=== PATIENT | female | born 1955 | race African-American/Black ===

== ENCOUNTER → 2016-07-19 | Outpatient (CLI) | payer MEDICAID ==
[~2016-07-19] MED LIST: ADVAIR 250/28 DISKU1 IH; ALDACTONE 25MG25 M1 PO; ASMANEX TW110 MCG/AC IH; BENICAR40 MG PO; CATAPRES 0.1MG0.1 MG PO; CLONIDINE0.1 MG PO; COMBIVENT INH14.7 GM IH; COPPERAS1 GRA PO; DIOVAN160 M1 PO; EXFORGE HCT 101 TAB PO; FLEXERIL10 MG PO; FOLIC ACID; HCTZ PO; LISINOPRIL/HCTZ1 TA1 PO; MVI PO; NAPROSYN500 MG PO; NORCO 325 MG-51 TAB PO; NORCO 325 MG-7.1 TAB PO; NORVASC 5MG5 MG/TAB PO; NORVASC10 MG PO; PERCOCET 5/321 UDTAB PO; PHENERGAN 25 TA25 MG PO; PRENATAL1 TA1 PO; PRILOSEC 20MG20 MG PO; PROVENTIL0.09 MG/A1 IH; REGLAN 10MG10 MG/TAB PO; ROXICODONE 55 MG/TAB PO; SINGULAIR10 MG PO; TRIAMCINOLONE0.11 TP; TUSS PO; TYLENOL 500MG500 MG PO; ULTRAM 50MG TAB50 MG PO; VENTOLIN0.09 MG IH; XANAX .25M0.25 MG/TA PO; XARELTO10 MG PO; ZANTAC 300300 MG PO; ZYRTEC10 MG PO; [UNRECOGNIZED DRUG - REMARK]; [UNRECOGNIZED DRUG - REMARK]; arthritis med; bp meds
[2016-07-19 16:33] LABS: MEAN CELL VOLUME 95 fl (80.0-100.0); MEAN CORPUSCULAR HGB CONC 31 g/dl (33.0-37.0); PLATELET COUNT 274 K/mm3 (130-400); RED BLOOD COUNT 3.77 M/mm3 (4.10-5.30); REDCELL DISTRIBUTION WIDTH-CV 14.2 % (11.5-14.5); WHITE BLOOD COUNT 7.7 K/mm3 (4.8-10.8)
[2016-07-19 16:34] LABS: HEMATOCRIT 35.7 % (37.0-47.0); HEMOGLOBIN 10.9 g/dl (12.5-16.0); MEAN CORPUSCULAR HEMOGLOBIN 29 pg (27.0-31.0)
[2016-07-19 16:55] LABS: ERYTHROCYTE SEDIMENTATION RATE 48 mm/hr (0-30)
== END ==
LOC: COL.VAS 15:15 → COL.LAB 15:32 → COL.VAS 15:32
PROVIDERS: Orthopaedic Surgery
DX: R25.2 Cramp and spasm (principal); M79.89 Other specified soft tissue disorders

== ENCOUNTER 2016-10-19 17:35 | Emergency (ER) | payer SELFPAY ==
[~2016-10-19] VITALS: Ht 165.1 cm; Wt 104.5 kg
[2016-10-19 17:37] VITALS: TEMP 98.2
[2016-10-19 18:27] LABS: BASO % 0.5 % (0.0-2.0); EOS # 0.2 (0.0-0.7); EOS % 2.4 % (0-4.0); GRAN # 4.8 (1.4-6.5); GRAN % 60.4 % (42.2-75.2); LYMPH # 2.1 (1.2-3.4); LYMPH % 26.3 % (20.0-51.0); MEAN CELL VOLUME 94 fl (80.0-100.0); MEAN CORPUSCULAR HGB CONC 31 g/dl (33.0-37.0); MEAN PLATELET VOLUME 10.2 fl (7.4-10.4); MONO # 0.8 (0.1-0.6); MONO % 10.2 % (1.7-9.3); PLATELET COUNT 290 K/mm3 (130-400); RED BLOOD COUNT 3.75 M/mm3 (4.10-5.30); REDCELL DISTRIBUTION WIDTH-CV 14.3 % (11.5-14.5)
[2016-10-19 18:30] LABS: HEMATOCRIT 35.4 % (37.0-47.0); HEMOGLOBIN 10.9 g/dl (12.5-16.0); MEAN CORPUSCULAR HEMOGLOBIN 29 pg (27.0-31.0)
[2016-10-19 18:35] LABS: ADJUSTED CALCIUM 9.5 mg/dL (8.4-10.2); ALBUMIN 4.4 gm/dL (3.5-5.0); BILIRUBIN,TOTAL 0.5 mg/dL (0.0-1.0); CALCIUM 9.8 mg/dL (8.4-10.2); CREATININE, serum 1.01 mg/dL (0.52-1.25); POTASSIUM 4.3 mmol/L (3.4-5.0); TOTAL PROTEIN 9.1 gm/dL (6.4-8.2)
[2016-10-19 18:46] LABS: TROPONIN-I 0.012 ng/mL (0.000-0.034)
[2016-10-19] MEDS ORDERED: NORCO 325 MG-51 TAB PO (19:09)
[2016-10-19 19:45] VITALS: BP 155/79; PULSE 107
== END 2016-10-19 19:45 | disposition home or self-care (01) ==
LOC: COL.ER 17:35
PROVIDERS: Emergency Medicine
DX: R07.89 Other chest pain (principal); I10 Essential (primary) hypertension; I25.10 Atherosclerotic heart disease of native coronary artery without angina pectoris; M25.511 Pain in right shoulder
CPT/HCPCS: J2060; J2270; J2405; J7030

== ENCOUNTER 2017-08-09 14:45 | Outpatient (RCR) | payer MEDICARE | END 2017-08-10 13:45 | disposition home or self-care (01) | LOC: MKS.ESL.PT 14:45 | DX: M25.512 Pain in left shoulder (principal); Z98.890 Other specified postprocedural states | CPT/HCPCS: G8990-GP; G8991-GP; G8992-GP ==

== ENCOUNTER → 2017-09-14 | Outpatient (CLI) | payer MEDICARE ==
[~2017-09-14] MED LIST changes: +COZAAR100 MG PO; +FLEXERIL 1010 MG/TAB PO; +GLUCOPHAGE500 MG/TAB PO; +PRIL40 PO; +TRIAMCINOLONE A15 GM TP; +ZANTAC 150MG T150 MG PO; +ZYLOPRIM 300MG300 MG PO
== END ==
LOC: MC.RAD 11:20
DX: Z12.31 Encounter for screening mammogram for malignant neoplasm of breast (principal); Z98.890 Other specified postprocedural states

== ENCOUNTER 2017-12-20 13:47 | Emergency (ER) | payer MEDICARE ==
[~2017-12-20] VITALS: Ht 162.6 cm; Wt 113.6 kg
[~2017-12-20 13:47] MED LIST changes: +DIABETA 5MG5 MG/TAB PO; +TOPROL XL 25MG25 MG PO
[2017-12-20 13:52] VITALS: TEMP 98.1
[2017-12-20] MEDS ORDERED: ATARAX 10MG10 MG/TAB PO (14:08)
[2017-12-20] MEDS ORDERED: NORCO 325 MG-7.1 TAB PO (14:08)
[2017-12-20] MEDS ORDERED: VITAMIN D 1001000 IU (14:10)
[2017-12-20 15:01] LABS: BASO # 0.1 (0.0-0.2); BASO % 0.5 % (0.0-2.0); EOS # 0.4 (0.0-0.7); EOS % 3.6 % (0-4.0); GRAN # 6.9 (1.4-6.5); GRAN % 67.2 % (42.2-75.2); HEMATOCRIT 36.7 % (37.0-47.0); HEMOGLOBIN 11.2 g/dl (12.5-16.0); LYMPH % 19.4 % (20.0-51.0); MEAN CELL VOLUME 95 fl (80.0-100.0); MEAN CORPUSCULAR HEMOGLOBIN 29 pg (27.0-31.0); MEAN CORPUSCULAR HGB CONC 31 g/dl (33.0-37.0); MEAN PLATELET VOLUME 9.7 fl (7.4-10.4); MONO # 0.9 (0.1-0.6); MONO % 8.9 % (1.7-9.3); PLATELET COUNT 262 K/mm3 (130-400); RED BLOOD COUNT 3.88 M/mm3 (4.10-5.30); REDCELL DISTRIBUTION WIDTH-CV 15.6 % (11.5-14.5)
[2017-12-20 15:12] LABS: ALBUMIN 3.9 gm/dL (3.5-5.0); BILIRUBIN,TOTAL 0.2 mg/dL (0.0-1.0); CREATININE, serum 1.44 mg/dL (0.52-1.25); POTASSIUM 5.7 mmol/L (3.4-5.0); TOTAL PROTEIN 8.4 gm/dL (6.4-8.2)
[2017-12-20 15:25] LABS: TROPONIN-I 0.024 ng/mL (0.000-0.034)
[2017-12-20] MEDS ORDERED: ZITHROMAX Z PA250 MG PO (17:06)
[2017-12-20 17:41] VITALS: BP 132/74; PULSE 83
== END 2017-12-20 17:45 | disposition home or self-care (01) ==
LOC: COL.ER 13:47
PROVIDERS: Emergency Medicine
DX: J20.9 Acute bronchitis, unspecified (principal); E87.5 Hyperkalemia; I10 Essential (primary) hypertension; E11.9 Type 2 diabetes mellitus without complications; Z79.84 Long term (current) use of oral hypoglycemic drugs
CPT/HCPCS: J0696; J1885; J7040

== ENCOUNTER 2018-02-13 09:02 | Day surgery (SDC) | payer MEDICARE ==
[2018-02-13] VITALS (13 sets, daily range): BP systolic 152–202; BP diastolic 96–109; PULSE 102–121; TEMP 97–97.1
[~2018-02-13] VITALS: Ht 162.7 cm; Wt 113.0 kg
[~2018-02-13 09:02] MED LIST changes: +ATARAX 10MG10 MG/TAB PO; +VITAMIN D 1001000 IU PO; +ZITHROMAX Z PA250 MG PO
[2018-02-13 09:53] LABS: HEMATOCRIT 34.8 % (37.0-47.0); HEMOGLOBIN 10.6 g/dl (12.5-16.0); MEAN CELL VOLUME 96 fl (80.0-100.0); MEAN CORPUSCULAR HEMOGLOBIN 29 pg (27.0-31.0); MEAN CORPUSCULAR HGB CONC 31 g/dl (33.0-37.0); MEAN PLATELET VOLUME 10.1 fl (7.4-10.4); PLATELET COUNT 317 K/mm3 (130-400); RED BLOOD COUNT 3.62 M/mm3 (4.10-5.30); REDCELL DISTRIBUTION WIDTH-CV 14.6 % (11.5-14.5)
[2018-02-13 09:55] LABS: PROTHROMBIN TIME 11.7 SECONDS (9.7-12.8)
[2018-02-13 09:58] LABS: CALCIUM 10.6 mg/dL (8.4-10.2); CREATININE, serum 1.53 mg/dL (0.52-1.25); POTASSIUM 5.7 mmol/L (3.4-5.0)
[2018-02-13] MEDS ORDERED: XANAX .25M0.25 MG/TA PO (10:58)
[2018-02-13] MEDS ORDERED: NORVASC 5MG5 MG/TAB PO (10:59)
[2018-02-13] MEDS ORDERED: NORCO 325 MG-51 TAB PO (11:00)
[2018-02-13] MEDS ORDERED: NAPROSYN500 MG PO (11:01)
[2018-02-13] MEDS ORDERED: ALDACTONE 25MG25 M1 PO (11:03)
[2018-02-13] MEDS ORDERED: TOPROL XL 25MG25 MG PO (11:04)
[2018-02-13] MEDS ORDERED: TRIAMC 0.1 454 TOP (11:21)
[2018-02-13] MEDS ORDERED: DIABETA 2.5MG2.5 MG PO (11:22)
[2018-02-13] MEDS ORDERED: PREDNISONE20 MG PO (11:24)
== END 2018-02-13 17:55 | disposition home or self-care (01) ==
LOC: COL.CAR 09:02
PROVIDERS: Internal Medicine Cardiovascular Disease
DX: R06.02 Shortness of breath (principal); I42.8 Other cardiomyopathies; I27.20 Pulmonary hypertension, unspecified; I10 Essential (primary) hypertension; K21.9 Gastro-esophageal reflux disease without esophagitis; M06.9 Rheumatoid arthritis, unspecified; I87.8 Other specified disorders of veins; Z88.6 Allergy status to analgesic agent; Z88.3 Allergy status to other anti-infective agents; Z88.2 Allergy status to sulfonamides; Z88.8 Allergy status to other drugs, medicaments and biological substances
CPT/HCPCS: C1760; C1894; J1644; J2250; J2930; J3010; Q9967

== ENCOUNTER → 2018-03-06 | Outpatient (CLI) | payer MEDICARE ==
[~2018-03-06] MED LIST changes: +DIABETA 2.5MG2.5 MG PO; +PREDNISONE20 MG PO; +TRIAMC 0.1 454 TOP
== END ==
LOC: COL.RAD 08:15
DX: G93.5 Compression of brain (principal); R90.82 White matter disease, unspecified; Z98.890 Other specified postprocedural states
CPT/HCPCS: A9585

== ENCOUNTER 2018-03-13 07:19 | Day surgery (SDC) | payer MEDICARE ==
[2018-03-13] VITALS (7 sets, daily range): BP systolic 129–151; BP diastolic 73–88; PULSE 102–114; TEMP 97.9–98.3
[~2018-03-13] VITALS: Ht 165.2 cm; Wt 116.0 kg
[2018-03-13 07:46] LABS: HEMOGLOBIN 10.1 g/dl (12.5-16.0); MEAN CELL VOLUME 97 fl (80.0-100.0); MEAN CORPUSCULAR HEMOGLOBIN 30 pg (27.0-31.0); MEAN CORPUSCULAR HGB CONC 30 g/dl (33.0-37.0); MEAN PLATELET VOLUME 9.8 fl (7.4-10.4); PLATELET COUNT 312 K/mm3 (130-400); RED BLOOD COUNT 3.41 M/mm3 (4.10-5.30); REDCELL DISTRIBUTION WIDTH-CV 14.7 % (11.5-14.5)
[2018-03-13 07:47] LABS: HEMATOCRIT 33.2 % (37.0-47.0)
[2018-03-13 08:07] LABS: CALCIUM 9.7 mg/dL (8.4-10.2); CREATININE, serum 1.26 mg/dL (0.52-1.25); POTASSIUM 4.6 mmol/L (3.4-5.0)
[2018-03-13 08:30] LABS: PROTHROMBIN TIME 11.4 SECONDS (9.7-12.8)
[2018-03-14 00:59] VITALS: BP 102/60; PULSE 104; TEMP 98.6
[2018-03-14 04:19] VITALS: BP 112/62; PULSE 73; TEMP 97.4
[2018-03-14 06:51] LABS: BASO % 0.6 % (0.0-2.0); EOS # 0.2 (0.0-0.7); EOS % 3.3 % (0-4.0); GRAN # 4.1 (1.4-6.5); GRAN % 59.1 % (42.2-75.2); LYMPH # 1.6 (1.2-3.4); LYMPH % 23.9 % (20.0-51.0); MEAN CELL VOLUME 99 fl (80.0-100.0); MEAN CORPUSCULAR HGB CONC 30 g/dl (33.0-37.0); MEAN PLATELET VOLUME 10.2 fl (7.4-10.4); MONO # 0.9 (0.1-0.6); MONO % 12.4 % (1.7-9.3); PLATELET COUNT 241 K/mm3 (130-400); RED BLOOD COUNT 3.05 M/mm3 (4.10-5.30); REDCELL DISTRIBUTION WIDTH-CV 14.7 % (11.5-14.5)
[2018-03-14 06:53] LABS: HEMATOCRIT 30.2 % (37.0-47.0); HEMOGLOBIN 8.9 g/dl (12.5-16.0); MEAN CORPUSCULAR HEMOGLOBIN 29 pg (27.0-31.0)
[2018-03-14 07:09] LABS: CALCIUM 8.8 mg/dL (8.4-10.2); CREATININE, serum 1.82 mg/dL (0.52-1.25); MAGNESIUM 1.9 mg/dL (1.6-2.3); POTASSIUM 4.8 mmol/L (3.4-5.0)
[2018-03-14 08:35] VITALS: BP 106/57; PULSE 73; TEMP 97.5
[2018-03-14] MEDS ORDERED: TOPROL XL 50MG50 MG PO (10:43)
[2018-03-14] MEDS ORDERED: CLEOCIN HCL300 MG PO (10:48)
== END 2018-03-14 12:19 | disposition home or self-care (01) ==
LOC: COL.CAR 07:19 → MEDICAL 12:00 → COL.CAR 03-14 12:19
PROVIDERS: Internal Medicine Cardiovascular Disease
DX: I11.0 Hypertensive heart disease with heart failure (principal); I50.9 Heart failure, unspecified; E11.9 Type 2 diabetes mellitus without complications; I27.20 Pulmonary hypertension, unspecified; I34.0 Nonrheumatic mitral (valve) insufficiency; K21.9 Gastro-esophageal reflux disease without esophagitis; M19.90 Unspecified osteoarthritis, unspecified site; G93.5 Compression of brain; M51.36 Other intervertebral disc degeneration, lumbar region
CPT/HCPCS: OP; J2250; J2405; J3010; J3370; J7030; J7050

== ENCOUNTER 2018-04-01 11:59 | Inpatient (IN) | payer MEDICARE ==
[~2018-04-01] VITALS: Ht 165.1 cm; Wt 144.5 kg
[~2018-04-01 11:59] MED LIST changes: +CLEOCIN HCL300 MG PO; +TOPROL XL 50MG50 MG PO
--- NOTE | 2018-04-19 09:21 | NUR ---
Pt arrived to room 304 ambulatory with admissions staff. Pt oriented to room and call light system. Will complete assessment. Pt's is at the bedside; all questions answered. Pt is sitting up in the bed at this time and she denies further needs. Call light within reach, will continue to monitor.
[2018-04-19 10:04] LABS: BASO % 0.6 % (0.0-2.0); EOS # 0.3 (0.0-0.7); EOS % 3.6 % (0-4.0); GRAN # 4.7 (1.4-6.5); GRAN % 65.2 % (42.2-75.2); HEMOGLOBIN 10.2 g/dl (12.5-16.0); LYMPH # 1.6 (1.2-3.4); LYMPH % 21.7 % (20.0-51.0); MEAN CELL VOLUME 97 fl (80.0-100.0); MEAN CORPUSCULAR HEMOGLOBIN 29 pg (27.0-31.0); MEAN CORPUSCULAR HGB CONC 30 g/dl (33.0-37.0); MEAN PLATELET VOLUME 9.9 fl (7.4-10.4); MONO # 0.6 (0.1-0.6); MONO % 8.2 % (1.7-9.3); PLATELET COUNT 208 K/mm3 (130-400); RED BLOOD COUNT 3.48 M/mm3 (4.10-5.30); REDCELL DISTRIBUTION WIDTH-CV 14.2 % (11.5-14.5)
[2018-04-19 10:07] LABS: HEMATOCRIT 33.6 % (37.0-47.0)
[2018-04-19 10:10] LABS: INR 1.1 (0.8-3.0)
[2018-04-19 10:15] VITALS: BP 171/98; PULSE 107; TEMP 98.4
[2018-04-19 10:16] LABS: ALBUMIN 4.2 gm/dL (3.5-5.0); BILIRUBIN,TOTAL 0.4 mg/dL (0.0-1.0); CALCIUM 9.7 mg/dL (8.4-10.2); CREATININE, serum 1.34 mg/dL (0.52-1.25); MAGNESIUM 1.7 mg/dL (1.6-2.3); POTASSIUM 4.8 mmol/L (3.4-5.0); TOTAL PROTEIN 9.2 gm/dL (6.4-8.2)
[2018-04-19 11:06] VITALS: BP 107/58; PULSE 96; TEMP 98.8
[2018-04-19 15:26] VITALS: BP 150/80; PULSE 97; TEMP 98.1
[2018-04-19 18:56] VITALS: BP 165/86; PULSE 94; TEMP 98
--- NOTE | 2018-04-19 19:19 | NUR ---
Pt has been resting on and off throughout the day. She has remained free of pain. Pt's S/O has remained at the bedside; all questions answered. Pt is sitting up in the bed watching TV at this time and she denies further needs. Call light within reach. Report given to CHRIS Adams.
--- NOTE | 2018-04-19 20:59 | NUR ---
PT IN BED WITH HOB ELEVATED AT 45 DEGREE ANGLE. PT HAS NO C/O OF PAIN AT THIS TIME. ADVISES THAT SHE HAS AMBULATED IN ROOM. NO NEEDS AT THIS TIME, CALL LIGHT WITHIN REACH.
[2018-04-20 00:35] VITALS: BP 132/70; PULSE 75; TEMP 97.7
--- NOTE | 2018-04-20 04:35 | NUR ---
UNEVENTFUL NIGHT, PT IN BED ASLEEP/RESTING, WITH NO S/S OF PAIN OR DISCOMFORT AND RESP EVEN AND UNLABORED. CALL LIGHT WITHIN REACH.
[2018-04-20 04:37] VITALS: BP 143/64; PULSE 66; TEMP 98.4
[2018-04-20 08:10] VITALS: BP 135/74; PULSE 82; TEMP 97.3
[2018-04-20 08:22] LABS: BASO % 0.6 % (0.0-2.0); EOS # 0.4 (0.0-0.7); EOS % 5.6 % (0-4.0); GRAN # 3.5 (1.4-6.5); GRAN % 54.3 % (42.2-75.2); HEMATOCRIT 32.3 % (37.0-47.0); HEMOGLOBIN 9.7 g/dl (12.5-16.0); LYMPH # 1.9 (1.2-3.4); LYMPH % 29.2 % (20.0-51.0); MEAN CELL VOLUME 96 fl (80.0-100.0); MEAN CORPUSCULAR HEMOGLOBIN 29 pg (27.0-31.0); MEAN CORPUSCULAR HGB CONC 30 g/dl (33.0-37.0); MEAN PLATELET VOLUME 10.5 fl (7.4-10.4); MONO # 0.7 (0.1-0.6); PLATELET COUNT 217 K/mm3 (130-400); RED BLOOD COUNT 3.35 M/mm3 (4.10-5.30); REDCELL DISTRIBUTION WIDTH-CV 14.4 % (11.5-14.5)
[2018-04-20 08:28] LABS: INR 1.1 (0.8-3.0); PROTHROMBIN TIME 12.6 SECONDS (9.7-12.8)
[2018-04-20 08:31] LABS: CALCIUM 9.3 mg/dL (8.4-10.2); CREATININE, serum 1.66 mg/dL (0.52-1.25); MAGNESIUM 1.9 mg/dL (1.6-2.3); POTASSIUM 4.4 mmol/L (3.4-5.0)
--- NOTE | 2018-04-20 09:00 | NUR ---
Assessment complete. Pt is AXO X3, denies having any pain at this time. Breathing is even and unlabored on room air. Tele on. RA INT flushes easily, remains free of complications, and is CDI. Pt is sitting up in the bed waiting for her breakfast to arrive at this time and she denies further needs. Call light within reach, will continue to monitor.
[2018-04-20 11:27] VITALS: BP 129/64; PULSE 69; TEMP 97.4
[2018-04-20 18:26] VITALS: BP 149/81; PULSE 81; TEMP 97.7
[2018-04-20 19:25] VITALS: BP 145/77; PULSE 89; TEMP 97.6
--- NOTE | 2018-04-20 19:28 | NUR ---
Pt has been resting on and off throughout the day. She has remained free of pain. Pt is sitting up in the bed at this time and she denies further needs. Call light within reach. Report given to CHRIS Adams.
--- NOTE | 2018-04-20 19:50 | NUR ---
PT IN BED WITH HOB ELEVATED TO 45 DEGREE ANGLE, DENIES PAIN OR DISCOMFORT. NO NEEDS AT THIS TIME, CALL LIGHT WITHIN REACH.
[2018-04-21 00:14] VITALS: BP 140/70; PULSE 83; TEMP 97.6
[2018-04-21 04:07] VITALS: BP 132/70; PULSE 77; TEMP 97.8
--- NOTE | 2018-04-21 05:15 | NUR ---
UNEVENTFUL NIGHT FOR PT. PT HAS BEEN SLEEPING MOST OF THE NIGHT. PT STATES THAT SHE HAS BEEN SLEEPING ON AND OFF ALL NIGHT, BUT MOSTLY SLEEPING. PT DENIES PAIN OR DISCOMFORT, OR ANY FURTHER NEEDS, CALL LIGHT WITHIN REACH.
--- NOTE | 2018-04-21 08:30 | NUR ---
Assessment complete. Pt laying in bed, drowsy but alert to stimuli, oriented x 4. Breath sounds CTAB. BS active x 4. Pt denies pain at this time. Saline lock IV to right AC without s/s of complications. POC reviewed with pt. No further needs reported. Call light in reach.
[2018-04-21 08:59] LABS: PROTHROMBIN TIME 11.3 SECONDS (9.7-12.8)
[2018-04-21 09:00] VITALS: BP 136/84; PULSE 66; TEMP 97.4
[2018-04-21 09:02] LABS: BASO # 0.1 (0.0-0.2); BASO % 0.8 % (0.0-2.0); EOS # 0.5 (0.0-0.7); EOS % 6.5 % (0-4.0); GRAN # 4.2 (1.4-6.5); GRAN % 58.6 % (42.2-75.2); LYMPH # 1.8 (1.2-3.4); LYMPH % 25.5 % (20.0-51.0); MEAN CELL VOLUME 95 fl (80.0-100.0); MEAN CORPUSCULAR HGB CONC 31 g/dl (33.0-37.0); MEAN PLATELET VOLUME 10.5 fl (7.4-10.4); MONO # 0.5 (0.1-0.6); MONO % 7.6 % (1.7-9.3); PLATELET COUNT 191 K/mm3 (130-400); RED BLOOD COUNT 3.37 M/mm3 (4.10-5.30); REDCELL DISTRIBUTION WIDTH-CV 14.4 % (11.5-14.5)
[2018-04-21 09:03] LABS: HEMATOCRIT 31.9 % (37.0-47.0); HEMOGLOBIN 9.9 g/dl (12.5-16.0); MEAN CORPUSCULAR HEMOGLOBIN 29 pg (27.0-31.0)
[2018-04-21 09:26] LABS: CALCIUM 9.3 mg/dL (8.4-10.2); CREATININE, serum 1.39 mg/dL (0.52-1.25); POTASSIUM 4.8 mmol/L (3.4-5.0)
[2018-04-21] MEDS ORDERED: BETAPACE 80MG80 MG PO (10:24)
[2018-04-21 11:16] VITALS: BP 137/69; PULSE 77; TEMP 97.5
--- NOTE | 2018-04-21 11:54 | NUR ---
Patient lives at home alone in [place], [place] and plans to return home upon discharge. Patient is mostly independent with daily living activities yet has good support from local family including her daughter (Mary Ambriz) and her sister (Lu Ang) as needed. Patient has no durable medical equipment anticipated needs at this time, her primary care physician is Dr. Mona Zayas, her pharmacy is [facility], and she does not have advance directives on file at this time. No further needs at this time and social media marketing analyst will follow as needed.
--- NOTE | 2018-04-21 12:00 | NUR ---
Discharge instructions reviewed with pt regarding new medication and follow-up appointment. Pt verbalizes understanding, discharged home, ambulates out of facility accompanied by this nurse and pt's significant other.
== END 2018-04-21 12:05 | disposition home or self-care (01) | DRG 309 ==
LOC: MEDICAL 04-19 09:11 → PEDS 04-19 09:23 → MEDICAL 04-19 09:24
PROVIDERS: ADMIT Internal Medicine Cardiovascular Disease
DX: I47.1 Supraventricular tachycardia (principal); I42.0 Dilated cardiomyopathy; E66.2 Morbid (severe) obesity with alveolar hypoventilation; Z68.43 Body mass index [BMI] 50.0-59.9, adult; I48.91 Unspecified atrial fibrillation; I47.2 Ventricular tachycardia; I10 Essential (primary) hypertension; Z95.810 Presence of automatic (implantable) cardiac defibrillator; E11.9 Type 2 diabetes mellitus without complications; I27.20 Pulmonary hypertension, unspecified; M06.9 Rheumatoid arthritis, unspecified; I87.8 Other specified disorders of veins

== ENCOUNTER 2018-06-26 14:20 | Outpatient (RCR) | payer MEDICARE ==
[~2018-06-26 14:20] MED LIST changes: +BETAPACE 80MG80 MG PO
== END 2018-09-24 | disposition home or self-care (01) ==
LOC: WSST
DX: K21.9 Gastro-esophageal reflux disease without esophagitis (principal); R09.89 Other specified symptoms and signs involving the circulatory and respiratory systems; R06.02 Shortness of breath

== ENCOUNTER → 2018-07-03 | Outpatient (CLI) | payer MEDICARE | LOC: COL.RAD 09:00 | DX: K21.9 Gastro-esophageal reflux disease without esophagitis (principal); T17.308A Unspecified foreign body in larynx causing other injury, initial encounter; K22.2 Esophageal obstruction ==

== ENCOUNTER → 2018-09-12 | Outpatient (CLI) | payer MEDICARE | LOC: COL.RAD 12:28 | DX: M47.815 Spondylosis without myelopathy or radiculopathy, thoracolumbar region (principal); M47.817 Spondylosis without myelopathy or radiculopathy, lumbosacral region | CPT/HCPCS: A9585 ==

== ENCOUNTER → 2018-09-24 | Outpatient (CLI) | payer MEDICARE | LOC: MHCPAIN 13:20 | DX: G89.29 Other chronic pain (principal); M47.817 Spondylosis without myelopathy or radiculopathy, lumbosacral region; M54.16 Radiculopathy, lumbar region; M53.3 Sacrococcygeal disorders, not elsewhere classified; M96.1 Postlaminectomy syndrome, not elsewhere classified | CPT/HCPCS: G0463 ==

== ENCOUNTER → 2018-10-07 | Outpatient (CLI) | payer MEDICARE | LOC: MHCPAIN 13:56 | DX: M53.3 Sacrococcygeal disorders, not elsewhere classified (principal); M54.16 Radiculopathy, lumbar region | CPT/HCPCS: G0260; J1040; Q9967 ==

== ENCOUNTER → 2018-10-14 | Outpatient (CLI) | payer MEDICARE | LOC: MC.RAD 10:30 | DX: Z12.31 Encounter for screening mammogram for malignant neoplasm of breast (principal) ==

== ENCOUNTER → 2018-12-03 | Outpatient (CLI) | payer MEDICARE | LOC: MHCPAIN 09:04 | DX: G89.29 Other chronic pain (principal); M47.817 Spondylosis without myelopathy or radiculopathy, lumbosacral region; M54.16 Radiculopathy, lumbar region; M53.3 Sacrococcygeal disorders, not elsewhere classified; M96.1 Postlaminectomy syndrome, not elsewhere classified | CPT/HCPCS: G0463 ==

== ENCOUNTER → 2018-12-05 | Outpatient (CLI) | payer MEDICARE | LOC: MHCPAIN 09:05 | DX: M47.817 Spondylosis without myelopathy or radiculopathy, lumbosacral region (principal); M54.16 Radiculopathy, lumbar region ==

== ENCOUNTER → 2018-12-10 | Outpatient (CLI) | payer MEDICARE | LOC: MHCPAIN 10:39 | DX: G89.29 Other chronic pain (principal); M47.817 Spondylosis without myelopathy or radiculopathy, lumbosacral region; M53.3 Sacrococcygeal disorders, not elsewhere classified; M96.1 Postlaminectomy syndrome, not elsewhere classified | CPT/HCPCS: G0463 ==

== ENCOUNTER → 2018-12-31 | Outpatient (RCR) | payer MEDICARE | END | disposition still patient (30) | LOC: WSPT → WSC 10-02 13:29 → WSPT 11-26 10:15 → WSC 12-17 11:15 → WSPT 12-23 10:30 | DX: M53.3 Sacrococcygeal disorders, not elsewhere classified (principal); M96.1 Postlaminectomy syndrome, not elsewhere classified; M47.27 Other spondylosis with radiculopathy, lumbosacral region; G89.29 Other chronic pain ==

== ENCOUNTER → 2019-02-13 | Outpatient (CLI) | payer MEDICARE | LOC: MHCPAIN 12-19 13:32 | DX: G89.29 Other chronic pain (principal) ==

== ENCOUNTER → 2019-08-14 | Outpatient (CLI) | payer MEDICARE | LOC: COL.RAD 08:15 | DX: R10.11 Right upper quadrant pain (principal) ==

== ENCOUNTER → 2019-10-20 | Outpatient (CLI) | payer MEDICARE | LOC: MC.RAD 10:30 | DX: Z12.31 Encounter for screening mammogram for malignant neoplasm of breast (principal); N64.89 Other specified disorders of breast ==

== ENCOUNTER → 2019-10-24 | Outpatient (CLI) | payer MEDICARE | LOC: MC.RAD 10:14 | DX: Z12.31 Encounter for screening mammogram for malignant neoplasm of breast (principal); N64.89 Other specified disorders of breast; Z98.82 Breast implant status ==

== ENCOUNTER → 2020-12-09 | Outpatient (CLI) | payer MEDICARE | LOC: MC.RAD 14:00 | DX: Z12.31 Encounter for screening mammogram for malignant neoplasm of breast (principal) ==

== ENCOUNTER 2021-10-31 12:06 | Emergency (ER) | payer MEDICARE ==
[~2021-10-31] VITALS: Ht 162.6 cm; Wt 104.5 kg
[2021-10-31 12:07] VITALS: BP 143/81; TEMP 97.8
[2021-10-31 13:00] VITALS: PULSE 78
== END 2021-10-31 13:00 | disposition home or self-care (01) ==
LOC: COL.ER 12:06
DX: M54.42 Lumbago with sciatica, left side (principal)
CPT/HCPCS: J1885; J2270

== ENCOUNTER 2022-03-25 05:20 | Observation (INO) | payer MEDICARE ==
[~2022-03-25] VITALS: Ht 162.6 cm; Wt 113.6 kg
[2022-03-25 06:09] LABS: MEAN CELL VOLUME 96 fl (80.0-100.0); MEAN CORPUSCULAR HGB CONC 30 g/dl (33.0-37.0); MEAN PLATELET VOLUME 10.4 fl (7.4-10.4); PLATELET COUNT 252 K/mm3 (130-400); RED BLOOD COUNT 3.12 M/mm3 (4.10-5.30); REDCELL DISTRIBUTION WIDTH-CV 15.3 % (11.5-14.5)
[2022-03-25 06:14] LABS: HEMATOCRIT 29.9 % (37.0-47.0); HEMOGLOBIN 9.1 g/dl (12.5-16.0); MEAN CORPUSCULAR HEMOGLOBIN 29 pg (27-31)
[2022-03-25 06:23] LABS: BAND 6 % (0-10); EOSINOPHIL 1 % (0-4); LYMPHOCYTE 6 % (20.0-51.0); NEUTROPHILS 84 % (42.0-75.2); PLATELET ESTIMATE NORMAL (NORMAL)
[2022-03-25 06:27] LABS: ALBUMIN 3.3 gm/dL (3.4-4.8); BILIRUBIN,TOTAL 0.5 mg/dL (0.2-1.2); CALCIUM 9.4 mg/dL (8.4-10.2); CREATININE, serum 2.52 mg/dL (0.57-1.11)
[2022-03-25 07:43] LABS: SQUAMOUS EPITHELIAL None Seen /hpf (0-10); URINE APPEARANCE Clear (CLEAR/HAZY); URINE BACTERIA None Seen /hpf (NONE SEEN); URINE COLOR Yellow (YELLOW); URINE RBC 0-2 /hpf (0-2)
[2022-03-25 07:44] LABS: PH 6.5 (5.0-8.5); URINE BLOOD Negative (NEGATIVE); URINE GLUCOSE 3+ (NEGATIVE); URINE KETONE Negative (NEGATIVE); URINE NITRATE Negative (NEGATIVE); URINE PROTEIN(semi-quant) TRACE (NEGATIVE)
[2022-03-25 07:45] LABS: COLLECTION METHOD CATHETER
[2022-03-25 08:06] LABS: C-REACTIVE PROTEIN 9.67 mg/dL (0.00-0.50)
[2022-03-25 08:15] LABS: TROPONIN-I 0.02 ng/mL (0.00-0.033)
--- NOTE | 2022-03-25 10:30 | NUR ---
PT ADMITTED FROM ED. PT AMBULATED TO RESTROOM AND THEN TO BED. VSS. PT ORIENTED TO ROOM AND UNIT. PTS SO ARIC BEDSIDE. ADMISSION COMPLETED. [facility] CALL[facility] FOR MEDICAITON LIST. NOTIFIED OF PTS ARRIVAL TO UNIT.
[2022-03-25 11:15] VITALS: BP 144/76; PULSE 122; TEMP 97.8
[2022-03-25] MEDS ORDERED: PROAIR HFA0.09 MG/AC IH (11:26)
[2022-03-25] MEDS ORDERED: NEURONTIN300 MG/CAP PO (11:27)
[2022-03-25] MEDS ORDERED: NORCO 325 MG-7.1 TAB PO (11:28)
[2022-03-25] MEDS ORDERED: CARDIZEM LA180 MG PO (11:29)
[2022-03-25] MEDS ORDERED: BETAPACE 120MG120 MG PO (11:31)
[2022-03-25] MEDS ORDERED: JARDIANCE10 (11:31)
[2022-03-25] MEDS ORDERED: ALDACTONE 25MG25 M1 PO (11:31)
--- NOTE | 2022-03-25 12:50 | NUR ---
Director Of Accounts Receivable rounds: Patient accepted prayer and a bible. Director Of Accounts Receivable changed TV channel to [employer]. Patient stated that her head hurt. Patient was sleepy and fell asleep before Director Of Accounts Receivable left the room.
[2022-03-25 13:58] VITALS: BP 151/93; PULSE 135; TEMP 98.2
[2022-03-25 16:03] VITALS: BP 143/75; PULSE 133; TEMP 98.3
[2022-03-25 19:47] VITALS: BP 133/76; PULSE 116; TEMP 99.3
--- NOTE | 2022-03-25 20:33 | NUR ---
1950-PT COMPLAINING OF NAUSEA. SPRITE AND CRACKERS GIVEN. 2024-PT HAD ONE EPISODE OF EMESIS. PT CLEANED UP. CALLED AND NOTIFIED. ORDER RECEIVED FOR ALANNA.
[2022-03-25 23:09] VITALS: BP 125/65; PULSE 110; TEMP 99.1
[2022-03-25 23:18] VITALS: BP 106/61; PULSE 53; TEMP 97.4
--- NOTE | 2022-03-26 01:00 | NUR ---
Pt doing okay at this time. She does have some complaints of a headache. Pt conversation is not fluent. Talks about room being too cold and asked her if she would like me to make it warmer and she stated, no it is warm enough, etc. Assisted pt up to the commode, she did well with stand by assist. Once back in bed, no needs verbalized, call light within reach
--- NOTE | 2022-03-26 04:38 | NUR ---
Pt slept most of the night. Uses call light when she needs to use the restroom. No complaints at this time, call light within reach
[2022-03-26 04:57] VITALS: BP 138/67; PULSE 106; TEMP 99
--- NOTE | 2022-03-26 07:00 | NUR ---
PT RESTING IN BED WEARING 2L NC. PT HAS CALL LIGHT WITHIN REACH AND INSTRUCTED TO CALL WITH ALL NEEDS.
[2022-03-26 07:31] VITALS: BP 144/75; PULSE 104; TEMP 98.4
[2022-03-26 11:28] VITALS: BP 115/56; PULSE 88; TEMP 98
--- NOTE | 2022-03-26 15:02 | NUR ---
SW met with patient to complete intake. Patients "boyfriend" is present at bedside. Patient reports that she lives at home and her boyfriend visits, however per nursing, she lives at home with her daughter Mary ([phone]). Patient reports that she is normally independent with her ADL's and utilizes a walker to assist with mobility. She is on 3-4 L of NC oxygen at baseline that is managed through [facility]. PCP is Dr. Zayas, but follows for her kidneys. She is not currently on dialysis. She utilizes [facility] for prescriptions.She states that she does have a [employer] established listing her daughter as her agent. Patient is planning on returning home once medically ready. Discharge plan: Home with family.
[2022-03-26 15:26] VITALS: BP 118/59; PULSE 79; TEMP 97.9
[2022-03-26 19:34] VITALS: BP 116/51; PULSE 86; TEMP 97.9
--- NOTE | 2022-03-26 21:06 | NUR ---
SHIFT REPORT FROM MARCO PEREZ. PATIENT IN BED ON ROOM ENTRY. EYES CLOSED BUT AWAKENS TO NAME. HS MEDS PER EMAR. C/O 10/10 TINGLING PAIN TO BLE, PRN TYLENOL GIVEN. DENIES ADDITIONAL NEEDS AT THIS TIME. CALL LIGHT IN REACH.
[2022-03-27 00:18] VITALS: BP 117/56; PULSE 82; TEMP 98.2
[2022-03-27 04:49] VITALS: BP 138/63; PULSE 90; TEMP 98
[2022-03-27 06:23] LABS: BASO # 0.1 K/mm3 (0.0-0.2); BASO % 0.4 % (0.0-2.0); EOS # 0.6 K/mm3 (0.0-0.7); EOS % 2.5 % (0.0-4.0); GRAN # 18.2 K/mm3 (1.4-6.5); LYMPH # 2.3 K/mm3 (1.2-3.4); LYMPH % 10.1 % (20.0-51.0); MEAN CELL VOLUME 99 fl (80.0-100.0); MEAN CORPUSCULAR HGB CONC 30 g/dl (33.0-37.0); MONO # 1.2 K/mm3 (0.1-0.6); MONO % 5.2 % (1.7-9.3); PLATELET COUNT 220 K/mm3 (130-400); RED BLOOD COUNT 2.94 M/mm3 (4.10-5.30); REDCELL DISTRIBUTION WIDTH-CV 15.1 % (11.5-14.5)
[2022-03-27 06:44] LABS: ALBUMIN 2.6 gm/dL (3.4-4.8); CALCIUM 9.1 mg/dL (8.4-10.2); CREATININE, serum 2.08 mg/dL (0.57-1.11); PHOSPHOROUS 2.7 mg/dL (2.3-4.7); POTASSIUM 4.8 mmol/L (3.5-4.5)
[2022-03-27 06:46] LABS: HEMOGLOBIN 8.7 g/dl (12.5-16.0); MEAN CORPUSCULAR HEMOGLOBIN 30 pg (27-31)
[2022-03-27 08:09] VITALS: BP 131/67; PULSE 88; TEMP 98.2
[2022-03-27 10:55] VITALS: BP 124/62; PULSE 84; TEMP 98
[2022-03-27 15:59] VITALS: BP 131/65; PULSE 82; TEMP 98
--- NOTE | 2022-03-27 17:30 | NUR ---
PATIENT AWAKE AND ALERT, SITTING UP IN BED. NO NEEDS OR COMPLAINTS AT THIS TIME. CALL LIGHT WITH IN REACH.
[2022-03-27 19:58] VITALS: BP 124/57; PULSE 90; TEMP 97.9
[2022-03-28 00:25] VITALS: BP 146/60; PULSE 87; TEMP 98.8
--- NOTE | 2022-03-28 01:19 | NUR ---
2000: Shift assessment completed. A&O x4. No needs or concerns expressed at this time. Pt able to ambulate to the bedside commode without complications. RAC INT is CDI. Belongings and call light within reach.
[2022-03-28 04:21] VITALS: BP 128/69; PULSE 92; TEMP 97.8
--- NOTE | 2022-03-28 06:37 | NUR ---
Pt had an uneventful night. No needs or concerns were reported. Call light is within reach.
[2022-03-28 06:48] LABS: ALBUMIN 2.7 gm/dL (3.4-4.8); CALCIUM 9.2 mg/dL (8.4-10.2); CREATININE, serum 1.81 mg/dL (0.57-1.11); PHOSPHOROUS 3.1 mg/dL (2.3-4.7)
[2022-03-28 06:50] LABS: MEAN CELL VOLUME 98 fl (80.0-100.0); MEAN CORPUSCULAR HGB CONC 30 g/dl (33.0-37.0); MEAN PLATELET VOLUME 10.9 fl (7.4-10.4); PLATELET COUNT 257 K/mm3 (130-400); RED BLOOD COUNT 3.05 M/mm3 (4.10-5.30); REDCELL DISTRIBUTION WIDTH-CV 15.2 % (11.5-14.5)
[2022-03-28 06:53] LABS: HEMATOCRIT 29.8 % (37.0-47.0); HEMOGLOBIN 8.8 g/dl (12.5-16.0); MEAN CORPUSCULAR HEMOGLOBIN 29 pg (27-31)
[2022-03-28 07:43] LABS: BAND 3 % (0-10); BASOPHIL 1 % (0-2); EOSINOPHIL 7 % (0-4); LYMPHOCYTE 26 % (20.0-51.0); METAMYELOCYTE 1 % (0-0); NEUTROPHILS 55 % (42.0-75.2)
[2022-03-28 07:44] LABS: PLATELET ESTIMATE NORMAL (NORMAL)
[2022-03-28 07:50] VITALS: BP 122/65; PULSE 90; TEMP 97.8
[2022-03-28] MEDS ORDERED: BETAPACE 120MG120 MG PO (10:45)
[2022-03-28] MEDS ORDERED: CARDIZEM CD 12120 MG PO (10:47)
[2022-03-28] MEDS ORDERED: LEVAQUIN 5500 MG/TA1 PO (10:48)
[2022-03-28] MEDS ORDERED: ALDACTONE 25MG25 M1 PO (10:52)
--- NOTE | 2022-03-28 11:45 | NUR ---
PATIENT GIVEN DISCHARGE INSTRUCTIONS AND EDUCATION. ALL QUESTIONS ANSWERED. NEW/ CHANGED AND STOPPED MEDS REVIEWED BRISA. IV DISCONTINUED.
--- NOTE | 2022-03-28 12:11 | NUR ---
PATIENT TAKEN TO ER ENTRANCE VIA WHEELCHAIR BY PCT WHERE SHE LEFT IN STABLE CONDITION WITH HER SIGNIFICANT OTHER.
[2022-03-29 10:39] LABS: KAPPA FREE LIGHT CHAIN-SERUM 186.35 mg/L (()); KAPPA LAMBDA RATIO 1.62 ratio (()); LAMDA FREE LIGHT CHAIN SERUM 114.74 mg/L (())
[2022-03-30 12:16] LABS: A/G RATIO (PEP) 0.44 (())
== END 2022-03-28 12:12 | disposition home or self-care (01) ==
LOC: COL.ER 05:20 → MEDICAL 08:45
PROVIDERS: Emergency Medicine; ADMIT Internal Medicine Nephrology
DX: N39.0 Urinary tract infection, site not specified (principal); N17.9 Acute kidney failure, unspecified; E11.22 Type 2 diabetes mellitus with diabetic chronic kidney disease; N18.32 Chronic kidney disease, stage 3b; R00.0 Tachycardia, unspecified; D63.1 Anemia in chronic kidney disease; S33.5XXA Sprain of ligaments of lumbar spine, initial encounter; E87.5 Hyperkalemia; R77.9 Abnormality of plasma protein, unspecified; Z79.84 Long term (current) use of oral hypoglycemic drugs; Z79.899 Other long term (current) drug therapy; W19.XXXA Unspecified fall, initial encounter
CPT/HCPCS: A9270; G0378; J0696; J1815; J2270; J2405; J7030

== ENCOUNTER 2022-04-18 11:17 | Emergency (ER) | payer MEDICARE ==
[~2022-04-18] VITALS: Ht 162.6 cm; Wt 113.2 kg
[~2022-04-18 11:17] MED LIST changes: +BETAPACE 120MG120 MG PO; +CARDIZEM CD 12120 MG PO; +CARDIZEM LA180 MG PO; +JARDIANCE10; +LEVAQUIN 5500 MG/TA1 PO; +NEURONTIN300 MG/CAP PO; +PROAIR HFA0.09 MG/AC IH
[2022-04-18 11:25] VITALS: TEMP 97.7
[2022-04-18 11:38] LABS: BASO # 0.1 K/mm3 (0.0-0.2); BASO % 0.5 % (0.0-2.0); EOS # 0.4 K/mm3 (0.0-0.7); EOS % 4.3 % (0.0-4.0); GRAN # 5.7 K/mm3 (1.4-6.5); GRAN % 59.7 % (42.2-75.2); LYMPH # 2.7 K/mm3 (1.2-3.4); LYMPH % 28.4 % (20.0-51.0); MEAN CELL VOLUME 99 fl (80.0-100.0); MEAN CORPUSCULAR HGB CONC 29 g/dl (33.0-37.0); MEAN PLATELET VOLUME 10.3 fl (7.4-10.4); MONO # 0.6 K/mm3 (0.1-0.6); MONO % 6.7 % (1.7-9.3); PLATELET COUNT 280 K/mm3 (130-400); RED BLOOD COUNT 3.22 M/mm3 (4.10-5.30); REDCELL DISTRIBUTION WIDTH-CV 15.8 % (11.5-14.5)
[2022-04-18 11:41] LABS: HEMATOCRIT 31.9 % (37.0-47.0); HEMOGLOBIN 9.2 g/dl (12.5-16.0); MEAN CORPUSCULAR HEMOGLOBIN 29 pg (27-31)
[2022-04-18 11:55] LABS: ALBUMIN 3.5 gm/dL (3.4-4.8); ALKALINE PHOSPHATASE 115 U/L (40-150); ANION GAP 10 mmol/L (7-16); AST,SGOT 15 U/L (5-34); BILIRUBIN,TOTAL 0.4 mg/dL (0.2-1.2); BLOOD UREA NITROGEN 38 mg/dL (10-20); CALCIUM 9.9 mg/dL (8.4-10.2); CARBON DIOXIDE 24 mmol/L (23-31); CHLORIDE 103 mmol/L (98-107); CREATININE, serum 2.73 mg/dL (0.57-1.11); GLUCOSE 119 mg/dL (70-99); SODIUM 137 mmol/L (136-145); TOTAL PROTEIN 10.4 gm/dL (6.2-8.1)
[2022-04-18 12:00] LABS: ALANINE AMINOTRANSFERASE < 6 U/L (0-55)
[2022-04-18 12:16] LABS: TROPONIN-I < 0.010 ng/mL (0.00-0.033)
[2022-04-18 12:38] LABS: COLLECTION METHOD CLEAN CATCH
[2022-04-18 12:46] LABS: URINE APPEARANCE Hazy (CLEAR/HAZY); URINE COLOR Yellow (YELLOW)
[2022-04-18 12:47] LABS: URINE BLOOD Negative (NEGATIVE); URINE GLUCOSE 1+ (NEGATIVE); URINE KETONE Negative (NEGATIVE); URINE NITRATE Negative (NEGATIVE); URINE PROTEIN(semi-quant) Negative (NEGATIVE); URINE UROBILINOGEN 0.2 E.U/dL (0.2-1.0)
[2022-04-18] MEDS ORDERED: TOPROL XL 25MG25 MG PO (12:48)
[2022-04-18 13:17] VITALS: BP 108/80; PULSE 100
[2022-04-18 13:47] LABS: MUCOUS Present (NOT PRESENT); URINE BACTERIA None Seen /hpf (NONE SEEN)
== END 2022-04-18 13:25 | disposition home or self-care (01) ==
LOC: COL.ER 11:17
PROVIDERS: Emergency Medicine
DX: I47.1 Supraventricular tachycardia (principal); I12.9 Hypertensive chronic kidney disease with stage 1 through stage 4 chronic kidney disease, or unspecified chronic kidney disease; E11.22 Type 2 diabetes mellitus with diabetic chronic kidney disease; N18.9 Chronic kidney disease, unspecified

== ENCOUNTER 2022-05-05 14:50 | Emergency (ER) | payer MEDICARE ==
[~2022-05-05] VITALS: Ht 162.6 cm; Wt 111.8 kg
[2022-05-05 15:03] VITALS: TEMP 97.2
[2022-05-05 15:25] LABS: BASO # 0.1 K/mm3 (0.0-0.2); BASO % 0.6 % (0.0-2.0); EOS # 0.2 K/mm3 (0.0-0.7); EOS % 2.2 % (0.0-4.0); GRAN # 5.5 K/mm3 (1.4-6.5); GRAN % 67.7 % (42.2-75.2); HEMOGLOBIN 9.6 g/dl (12.5-16.0); LYMPH # 1.9 K/mm3 (1.2-3.4); LYMPH % 23.4 % (20.0-51.0); MEAN CELL VOLUME 96 fl (80.0-100.0); MEAN CORPUSCULAR HEMOGLOBIN 29 pg (27-31); MEAN CORPUSCULAR HGB CONC 30 g/dl (33.0-37.0); MEAN PLATELET VOLUME 10.1 fl (7.4-10.4); MONO # 0.5 K/mm3 (0.1-0.6); MONO % 5.7 % (1.7-9.3); PLATELET COUNT 266 K/mm3 (130-400); RED BLOOD COUNT 3.33 M/mm3 (4.10-5.30); REDCELL DISTRIBUTION WIDTH-CV 15.9 % (11.5-14.5)
[2022-05-05 15:42] LABS: ALANINE AMINOTRANSFERASE 8 U/L (0-55); ALBUMIN 3.3 gm/dL (3.4-4.8); ALKALINE PHOSPHATASE 114 U/L (40-150); ANION GAP 10 mmol/L (7-16); AST,SGOT 13 U/L (5-34); BILIRUBIN,TOTAL 0.2 mg/dL (0.2-1.2); BLOOD UREA NITROGEN 31 mg/dL (10-20); CALCIUM 9.6 mg/dL (8.4-10.2); CARBON DIOXIDE 25 mmol/L (23-31); CHLORIDE 104 mmol/L (98-107); CREATININE, serum 2.15 mg/dL (0.57-1.11); GLUCOSE 161 mg/dL (70-99); POTASSIUM 4.5 mmol/L (3.5-4.5); SODIUM 139 mmol/L (136-145); TOTAL PROTEIN 10.3 gm/dL (6.2-8.1)
[2022-05-05 15:56] LABS: TROPONIN-I < 0.010 ng/mL (0.00-0.033)
[2022-05-05] MEDS ORDERED: TOPROL XL 25MG25 MG PO (16:16)
[2022-05-05 16:30] VITALS: BP 127/76; PULSE 104
== END 2022-05-05 16:35 | disposition home or self-care (01) ==
LOC: COL.ER 14:50
PROVIDERS: Emergency Medicine
DX: R00.0 Tachycardia, unspecified (principal); I10 Essential (primary) hypertension; D64.9 Anemia, unspecified; G47.30 Sleep apnea, unspecified; E66.9 Obesity, unspecified; Z99.89 Dependence on other enabling machines and devices; Z68.41 Body mass index [BMI] 40.0-44.9, adult
CPT/HCPCS: J7050

== ENCOUNTER 2022-05-22 05:42 | Emergency (ER) | payer MEDICARE ==
[~2022-05-22] VITALS: Ht 162.6 cm; Wt 113.6 kg
[2022-05-22 05:43] VITALS: TEMP 98.4
[2022-05-22 06:40] LABS: BASO # 0.1 K/mm3 (0.0-0.2); BASO % 0.8 % (0.0-2.0); EOS # 0.4 K/mm3 (0.0-0.7); EOS % 4.4 % (0.0-4.0); GRAN # 5.6 K/mm3 (1.4-6.5); GRAN % 64.5 % (42.2-75.2); LYMPH # 2.1 K/mm3 (1.2-3.4); LYMPH % 24.4 % (20.0-51.0); MEAN CELL VOLUME 96 fl (80.0-100.0); MEAN CORPUSCULAR HGB CONC 30 g/dl (33.0-37.0); MONO # 0.5 K/mm3 (0.1-0.6); MONO % 5.4 % (1.7-9.3); PLATELET COUNT 279 K/mm3 (130-400); RED BLOOD COUNT 3.42 M/mm3 (4.10-5.30); REDCELL DISTRIBUTION WIDTH-CV 15.7 % (11.5-14.5)
[2022-05-22 06:41] LABS: ALBUMIN 3.2 gm/dL (3.4-4.8); BILIRUBIN,TOTAL 0.3 mg/dL (0.2-1.2); CALCIUM 9.7 mg/dL (8.4-10.2); CREATININE, serum 2.65 mg/dL (0.57-1.11); POTASSIUM 4.7 mmol/L (3.5-4.5)
[2022-05-22 06:46] LABS: HEMATOCRIT 32.7 % (37.0-47.0); HEMOGLOBIN 9.7 g/dl (12.5-16.0); MEAN CORPUSCULAR HEMOGLOBIN 28 pg (27-31)
[2022-05-22 07:02] VITALS: BP 118/74; PULSE 80
== END 2022-05-22 07:15 | disposition home or self-care (01) ==
LOC: COL.ER 05:42
PROVIDERS: Personal Emergency Response Attendant
DX: S80.01XA Contusion of right knee, initial encounter (principal); S70.02XA Contusion of left hip, initial encounter; R53.1 Weakness; I12.9 Hypertensive chronic kidney disease with stage 1 through stage 4 chronic kidney disease, or unspecified chronic kidney disease; E11.22 Type 2 diabetes mellitus with diabetic chronic kidney disease; N18.9 Chronic kidney disease, unspecified; W18.30XA Fall on same level, unspecified, initial encounter
CPT/HCPCS: J7030

== ENCOUNTER 2022-07-21 10:30 | Outpatient (RCR) | payer MEDICARE | END 2022-07-23 | disposition home or self-care (01) | LOC: WSPT | DX: M25.561 Pain in right knee (principal) ==

== ENCOUNTER 2023-02-21 14:15 | Outpatient (RCR) | payer MEDICARE | END 2023-02-22 | disposition home or self-care (01) | LOC: WSPT | DX: M51.86 Other intervertebral disc disorders, lumbar region (principal) ==

== ENCOUNTER 2023-03-20 13:30 | Outpatient (RCR) | payer MEDICARE | END 2023-03-25 | disposition home or self-care (01) | LOC: WSC | DX: M51.9 Unspecified thoracic, thoracolumbar and lumbosacral intervertebral disc disorder (principal) ==

== ENCOUNTER 2023-04-20 13:30 | Outpatient (RCR) | payer MEDICARE | END 2023-04-25 | disposition home or self-care (01) | LOC: WSPT | DX: M51.9 Unspecified thoracic, thoracolumbar and lumbosacral intervertebral disc disorder (principal) ==

== ENCOUNTER 2023-08-16 15:00 | Outpatient (RCR) | payer MEDICARE | END 2023-08-24 | LOC: WSC → WSPT 15:00 | DX: M54.16 Radiculopathy, lumbar region (principal) ==

== ENCOUNTER → 2023-10-23 | Outpatient (CLI) | payer MEDICARE ==
[2005-02-15 12:35] VITALS: BP 123/56; PULSE 91; TEMP 97
== END ==
LOC: MC.RAD 11:41
DX: Z12.31 Encounter for screening mammogram for malignant neoplasm of breast (principal)

== ENCOUNTER 2023-11-04 07:47 | Emergency (ER) | payer MEDICARE ==
[~2023-11-04] VITALS: Ht 162.6 cm; Wt 106.4 kg
[2023-11-04 07:54] VITALS: TEMP 97.3
[2023-11-04] MEDS ORDERED: Morphine 4 MG/ML VIAL IV PRN (08:15)
[2023-11-04] MEDS ORDERED: Ondansetron 4 MG/2 ML VIAL IV ONE (08:15)
[2023-11-04] MEDS ORDERED: NS 1,000 ML IV ONE (08:15)
[2023-11-04 08:21] LABS: BASO # 0.1 K/mm3 (0.0-0.2); BASO % 0.9 % (0.0-2.0); EOS # 0.3 K/mm3 (0.0-0.7); EOS % 3.3 % (0.0-4.0); GRAN % 61.8 % (42.2-75.2); HEMATOCRIT 33.5 % (37.0-47.0); HEMOGLOBIN 10.1 g/dl (12.5-16.0); LYMPH # 2.2 K/mm3 (1.2-3.4); LYMPH % 26.6 % (20.0-51.0); MEAN CELL VOLUME 97 fl (80.0-100.0); MEAN CORPUSCULAR HEMOGLOBIN 29 pg (27-31); MEAN CORPUSCULAR HGB CONC 30 g/dl (33.0-37.0); MEAN PLATELET VOLUME 10.2 fl (7.4-10.4); MONO # 0.6 K/mm3 (0.1-0.6); MONO % 7.2 % (1.7-9.3); PLATELET COUNT 225 K/mm3 (130-400); RED BLOOD COUNT 3.44 M/mm3 (4.10-5.30); REDCELL DISTRIBUTION WIDTH-CV 16.1 % (11.5-14.5)
[2023-11-04 08:37] LABS: ALBUMIN 3.6 g/dL (3.4-4.8); BILIRUBIN,TOTAL 0.4 mg/dL (0.2-1.2); CALCIUM 9.6 mg/dL (8.4-10.2); CREATININE, serum 3.11 mg/dL (0.57-1.11); POTASSIUM 5.4 mEq/L (3.5-4.5); TOTAL PROTEIN 8.7 g/dl (6.2-8.1)
[2023-11-04 08:50] LABS: COLLECTION METHOD CLEAN CATCH
[2023-11-04 08:58] LABS: PH 5.5 (5.0-8.5); URINE APPEARANCE Cloudy (CLEAR/HAZY); URINE BLOOD TRACE-INTACT (NEGATIVE); URINE COLOR YELLOW (YELLOW); URINE GLUCOSE 2+ (NEGATIVE); URINE KETONE Negative (NEGATIVE); URINE NITRATE Negative (NEGATIVE); URINE PROTEIN(semi-quant) Negative (NEGATIVE); URINE UROBILINOGEN 0.2 E.U/dL (0.2-1.0)
[2023-11-04] MEDS ORDERED: droPERidol 2.5 MG/ML 2 ML VIAL IV ONE (09:30)
[2023-11-04 10:45] VITALS: BP 147/77; PULSE 85
== END 2023-11-04 10:52 | disposition home or self-care (01) ==
LOC: COL.ER 07:47
PROVIDERS: Personal Emergency Response Attendant
DX: M25.551 Pain in right hip (principal); R10.9 Unspecified abdominal pain
CPT/HCPCS: J1790; J2270; J2405; J7030